=== PATIENT | female | born 1960 | race Caucasian/White ===

== ENCOUNTER 2017-05-15 13:36 | Emergency (ER) | payer OTHER | END 2017-05-15 15:17 | disposition home or self-care (01) | LOC: FTE 13:36 | DX: M17.12 Unilateral primary osteoarthritis, left knee (principal); M65.351 Trigger finger, right little finger; E11.9 Type 2 diabetes mellitus without complications; I10 Essential (primary) hypertension; Z79.4 Long term (current) use of insulin | CPT/HCPCS: 29130; 99283-25 ==

== ENCOUNTER 2017-09-24 16:05 | Emergency (ER) | payer OTHER ==
[2017-09-24 18:16] LABS: ADD MAN DIFF? NO
[2017-09-24 18:19] LABS: WHITE BLOOD COUNT 7.4 10^3/ul (4.8-10.8)
[2017-09-24 18:19] LABS: BASOPHIL # 0.1 10^3/ul (0.0-0.1); BASOPHILS % 1.5 % (0.0-2.0); EOSINOPHILS # 0.1 10^3/ul (0.0-0.5); EOSINOPHILS % 1.7 % (0.0-7.0); HEMATOCRIT 47.6 % (37.0-47.0); LYMPHOCYTES # 2.3 10^3/ul (0.8-2.9); LYMPHOCYTES % 30.3 % (15.0-51.0); MEAN CORPUSCULAR HEMOGLOBIN 30.1 pg (29.0-33.0); MEAN CORPUSCULAR HGB CONC 33.6 g/dl (32.0-37.0); MEAN CORPUSCULAR VOLUME 89.6 fl (82.0-101.0); MEAN PLATELET VOLUME 12.7 fl (7.4-10.4); MONOCYTE # 0.6 10^3/ul (0.3-0.9); MONOCYTES % 7.5 % (0.0-11.0); NEUTROPHIL # 4.4 10^3/ul (1.6-7.5); NEUTROPHILS % 58.6 % (39.0-77.0); PLATELET COUNT 246 10^3/UL (140-415); RED BLOOD COUNT 5.31 10^6/ul (4.20-5.40); RED CELL DISTRIBUTION WIDTH 12.5 % (11.5-14.5)
[2017-09-24] MEDS: SOD CHLORIDE 0.9% IV (18:26)
[2017-09-24 18:28] LABS: AADO2 Arterial 34.4 mmHg (7.0-24.0); Allen Test ACCEPTAB; Arterial Base Excess 2.4 mmol/L (-3.0-3); Arterial Blood Gas Oxygen Sat 94.2 mmHG (95.0-98.0); Arterial COHb 4.3 % (0.0-3.0); Arterial Fraction of Oxyhgb 90.1 % (93.0-99.0); Arterial HCO3 26.9 mmol/L (22.0-26.0); Arterial MetHb 0.1 % (0.0-1.5); Arterial Total Hemglobin 16.1 g/dl (12.0-18.0); Arterial pCO2 41.2 mmhg (35-45); MODE ROOM AIR; Site Right Radial
[2017-09-24 18:37] LABS: LACTIC ACID 1.4 mmol/L (0.5-2.0)
[2017-09-24 18:38] LABS: ALANINE AMINOTRANSFERASE 132 IU/L (13-69); ALBUMIN 3.6 g/dl (3.3-4.9); ALBUMIN/GLOBULIN RATIO 0.92; ALKALINE PHOSPHATASE 135 IU/L (42-121); ANION GAP 12 (8-16); ASPARTATE AMINO TRANSFERASE 144 IU/L (15-46); BILIRUBIN,INDIRECT 0.4 mg/dl (0-1.1); BILIRUBIN,TOTAL 0.4 mg/dl (0.2-1.3); BLOOD UREA NITROGEN 12 mg/dl (7-20); CALCIUM 9.3 mg/dl (8.4-10.2); CARBON DIOXIDE 28 mmol/L (21-31); CHLORIDE 100 mmol/L (97-110); CREATININE 0.55 mg/dl (0.44-1.00); POTASSIUM 4.1 mmol/L (3.5-5.1); SODIUM 136 mmol/L (135-144); TOTAL PROTEIN 7.5 g/dl (6.1-8.1)
[2017-09-24 18:39] LABS: INR 0.97
[2017-09-24 18:40] LABS: PARTIAL THROMBOPLASTIN TIME 31.4 Sec (25.0-35.0)
[2017-09-24 18:49] LABS: GLUCOSE 517 mg/dl (70-220)
[2017-09-24 18:52] LABS: TROPONIN-I < 0.010 ng/ml (0.000-0.120)
== END 2017-09-24 20:12 | disposition left against medical advice (07) ==
LOC: E/R 16:05
DX: E11.65 Type 2 diabetes mellitus with hyperglycemia (principal); F17.210 Nicotine dependence, cigarettes, uncomplicated; R10.30 Lower abdominal pain, unspecified; Z91.14 Patient's other noncompliance with medication regimen
CPT/HCPCS: 36415; 36600; 71045; 80053; 82803; 82962; 83605; 84484; 85025; 85610; 85730; 87040; 93005; 99285-25